=== PATIENT | male | born 1975 | race Caucasian/White ===

== ENCOUNTER 2021-04-19 17:28 | Emergency (ER) | payer MEDICAID, SELFPAY ==
[2021-04-19 17:28] VITALS: BP 134/76; PULSE 96; RESP 18; TEMP 36.8; O2SAT 98; BMI 23.2
--- NOTE | 2021-04-19 17:35 | PC.NURSE ---
PATIENT LACERATION CLEANED WITH CLEANED WITH CHLORHEXIDINE AND STERILE 4X4
--- NOTE | 2021-04-19 17:42 | HMH.EDGENADL ---
ED Disposition Clinical Impression: Dog bite of hand Qualifiers: Encounter type: initial encounter Laterality: right Qualified Code(s): S61.451A - Open bite of right hand, initial encounter Disposition: Home, Self-Care Condition on Discharge: Good Instructions: DI for Laceration Repair, DI for Dog Bite Additional Instructions: Augmentin as prescribed. Rest hand and elevate hand next 2 days. Wound check by primary care provider for urgent treatment center in 3 to 4 days. Suture removal in 10 days. Additional instructions for LACERATION: Clean the wound daily with soap and water. You may shower. Apply a thin film of antibiotic ointment such as neosporin or triple antibiotic after showering and apply a bandage. Avoid submerging the wound, no swimming. See your primary care physician or return to the Urgent Treatment Center in 10 days for suture removal. The Urgent Treatment Center is open 9AM to 9 PM, 7 days a week. Return if any signs of infection including increasing pain, pus drainage, swelling, redness, red streaks, or fever. Prescriptions: Amoxicillin/Potassium Clav [Augmentin 875-125 Tablet] 1 tab PO Q12H #10 tab Transmission Status: Received by [id number] Referrals: Provider,Referral, [Primary Care Provider] - Forms: Work/School Release - Critical Care Critical Care Time: No Attestation: On , the high probability of a clinically significant, sudden or life threatening deterioration of the following system(s) required my full and direct attention, intervention and personal management. The time I documented below is in addition to time spent performing reported procedures but includes the following listed in this critical care notation. Medical Decision Making - Joseph Inquiry Pt receiving controlled substance: No Vital Signs: 04/19/21 17:28 Temperature 98.2 F Temperature Source Oral Pulse Rate [Right] 96 H Respiratory Rate 18 Blood Pressure [Right Arm] 134/76 Blood Pressure Mean [Right Arm] 95 02 Sat by Pulse Oximetry 98 Oxygen Delivery Method Room Air - Lab Data Lab Results 04/19/21 17:33: WBC 7.3, RBC 4.32 L, Hgb 13.8 L, Hct 39.7 L, MCV 91.9, MCH 31.9 H, MCHC 34.7, RDW 13.5, Plt Count 131 L, MPV 10.7 H, Neut % (Auto) 49.1, Lymph % (Auto) 44.0, [place] % (Auto) 3.6, Eos % (Auto) 2.5, Baso % (Auto) 0.8, Neut # (Auto) 3.6, Lymph # (Auto) 3.2, [place] # (Auto) 0.3, Eos # (Auto) 0.2, Baso # (Auto) 0.1 04/19/21 17:33: Sodium 140, Potassium 3.7, Chloride 108 H, Carbon Dioxide 22, Anion Gap 13.7, BUN 18, Creatinine 0.90, Estimated Creat Clear 115, Estimated GFR 90, Est GFR ( Amer) 109, Glucose 166 H, Calcium 9.1, Total Bilirubin 0.5, AST 27, ALT 18, Alkaline Phosphatase 70, Total Protein 7.8, Albumin 4.8, Globulin 3.0, Albumin/Globulin Ratio 1.6 Result diagrams: 04/19/21 17:33 04/19/21 17:33 Orders (Tests/Meds): ED MEDICATIONS Discontinued Medications Generic Name Dose Route Start Last Admin Trade Name Dina PRN Reason Stop Dose Admin Amoxicillin/Clavulanate Potassium 1 each 04/19/21 17:52 04/19/21 18:01 Amoxicillin/Pot Clavulan 500mg Tablet PO 04/19/21 17:53 1 each ONCE ONE Administration Protocol Lidocaine HCl 20 ml 04/19/21 17:52 04/19/21 18:12 Lidocaine 2% 20ml Vial IJ 04/19/21 17:53 5 ml ONCE ONE Administration Tetanus/Reduced Diphtheria/Acell Pertussis 0.5 ml 04/19/21 17:51 04/19/21 18:07 Tet/Diphth/Pert-Adult 0.5ml Syringe IM 04/19/21 17:52 0.5 ml .ONCE ONE Administration Medical Decision Narrative: The wound is gaping and gapes further when he flexes his hand. Therefore 1 suture was placed in the wound to reapproximate the edges, however it was not closed tightly. General Adult HPI - General Chief complaint: Wound/Laceration Stated complaint: LACERATION Time Seen by Provider: 04/19/21 17:42 Mode of Arrival: Family Vehicle Limitations: No Limitations Description of Symptoms (Recalled from ER Triage Doc.
--- NOTE | 2021-04-19 17:44 | PC.NURSE ---
PATIENT REFUSED TO COMPLETE AN ANIMAL BITE FORM. PATIENT STATED WHEN OFFERED HE WAS OFFERED TO COMPLETE FORM, I WILL LEAVE HERE IF YOU MAKE ME FILL THAT OUT. PATIENT INFORMED BY TERENCE ELLSWORTH THAT HE HAS THE RIGHT TO REFUSE THE ANIMAL BITE FORM.
[2021-04-19 17:50] LABS: Basophils # 0.1 K/mm3 (0-0.2); Basophils % 0.8 % (0.1-2.0); Eosinophils # 0.2 K/mm3 (0.0-0.4); Eosinophils % 2.5 % (0.1-12.0); Hematocrit 39.7 % (42.0-52.0); Hemoglobin 13.8 g/dL (14.1-18.0); Lymphocytes # 3.2 K/mm3 (0.7-4.5); Mean Corpuscular HGB Conc 34.7 g/dL (31.8-35.4); Mean Corpuscular Hemoglobin 31.9 pg (27.0-31.2); Mean Corpuscular Volume 91.9 fl (80-94); Mean Platelet Volume 10.7 fl (7.4-10.4); Monocytes # 0.3 K/mm3 (0.1-1.0); Monocytes % 3.6 % (1.7-9.3); Neutrophils # 3.6 K/mm3 (1.8-7.8); Neutrophils % 49.1 % (37.0-80.0); Platelet Count 131 K/mm3 (142-424); Red Blood Count 4.32 M/mm3 (4.60-6.20); Red Cell Distribution Width 13.5 % (11.5-17.5); White Blood Count 7.3 K/mm3 (4.8-10.8)
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
[2021-04-19 18:00] VITALS: BP 134/81; PULSE 98; RESP 16; TEMP 36.7; O2SAT 98
[2021-04-19 18:00] LABS: Chloride 108 mmol/L (98-107); Potassium 3.7 mmoL/L (3.5-5.1); Sodium 140 mmol/L (136-145)
[2021-04-19 18:03] LABS: Alanine Aminotransferase 18 U/L (12-78); Albumin Level 4.8 g/dl (3.5-5.0); Albumin/Globulin Ratio 1.6 (1.1-1.8); Alkaline Phosphatase 70 U/L (38-126); Anion Gap 13.7 mEq/L (5-15); Aspartate Amino Transferase 27 U/L (17-59); Bilirubin,Total 0.5 mg/dl (0.2-1.3); Blood Urea Nitrogen 18 mg/dl (9-20); Calcium 9.1 mg/dl (8.4-10.2); Carbon Dioxide 22 mmol/L (22.0-30.0); Creatinine Clearance Estimated 115 mL/min (50-200); Estimated Glomerular Filt Rate 90 ml/min (>60); GFR (African American) 109 ML/MIN (>60); Glucose 166 mg/dl (74-100); Total Protein,Serum 7.8 g/dl (6.3-8.2)
--- NOTE | 2021-04-19 18:16 | PC.NURSE ---
TDAP CONSENT SIGNED AND IN PATIENT CHART
--- NOTE | 2021-04-19 18:23 | PC.NURSE ---
APPLIED XERFORM DRESSING TO PATIENT LACERATION PER MD REQUEST
== END 2021-04-19 18:35 | disposition home or self-care (01) ==
PROVIDERS: Emergency Provider Emergency Medicine
DX: S61.451A Open bite of right hand, initial encounter (principal); W54.0XXA Bitten by dog, initial encounter; Y92.019 Unspecified place in single-family (private) house as the place of occurrence of the external cause; Z23 Encounter for immunization
CPT/HCPCS: 12002; 73130; 80053; 85025; 90715; 99282

== ENCOUNTER 2022-05-02 19:03 | Emergency (ER) | payer OTHER, SELFPAY ==
[2022-05-02 19:07] VITALS: BP 153/85; PULSE 82; RESP 16; TEMP 36.6; O2SAT 98; BMI 22.4
[2022-05-02 20:07] VITALS: BP 123/67; PULSE 68; TEMP 36.1
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
[2022-05-02 21:01] VITALS: BP 123/72; PULSE 55; TEMP 37.7
[2022-05-02 21:33] VITALS: BP 120/68; PULSE 57; O2SAT 99
[2022-05-02 22:18] VITALS: BP 116/72; PULSE 66; RESP 16; TEMP 36.6; O2SAT 100
== END 2022-05-02 22:25 | disposition home or self-care (01) ==
PROVIDERS: Emergency Provider Emergency Medicine
DX: M54.50 Low back pain, unspecified (principal); M54.2 Cervicalgia; M25.552 Pain in left hip; M25.551 Pain in right hip; R51.9 Headache, unspecified; J44.9 Chronic obstructive pulmonary disease, unspecified
CPT/HCPCS: 70450; 72125; 72128; 72131; 96372; 99285

== ENCOUNTER → 2023-03-31 08:26 | Outpatient (POV) | payer MEDICAID, SELFPAY ==
[2023-03-31 08:29] VITALS: BP 137/74; PULSE 73; RESP 20; O2SAT 98; BMI 22.4
--- NOTE | 2023-03-31 08:45 | EXP.PAIN.OV ---
HPI Data of Consult Patient: new to practice Consult date: 03/31/23 Requesting Physician: Rhonda Serrano APRN Primary Care Provider: Blanca Purdy APRN Consult Narrative Reason for consult: Neck pain, low back pain History of present illness: Mr. Merlos is a 48 year old male who presents today as a new patient. He is a referral from Blanca Purdy's office. Today he rates his pain a 5 out of 10. Patient states his pain is all in his upper back/neck between his shoulder blades and low back with radiating symptoms into his bilateral lower extremities with the right side being the worst side. Patient describes this as a achy, stabbing sensation in his low back to his legs. He does state this pain is worse with increased activity however it is intermittent and sometimes randomly will have his legs give out. He does state that the pain between his shoulder blades often can affect his breathing. He feels like he has a knot formed he frequently uses pillows for positioning to relieve some of this pressure. 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 Patient denies any previous surgery. Patient has tried [id number] ibuprofen along with heat and ice and topicals with no additional improvement. He states in the past he has had 1 injection years ago and he does not recall it providing significant relief. Patient has had physical therapy in the past that he stated did provide some improvement but also worsened some other pain areas. Patient is currently on Suboxone therapy from an outside provider. He also takes Motrin on a daily basis. His Joseph is [phone]. Its been reviewed and appropriate. CC: Rhonda Serrano APRN [facility] Disclaimer: The information contained in this section may have been updated after the patient was seen, as this information can be updated by other users. Medical History (Updated 03/31/23 @ 08:51 by Rhonda Serrano APRN) COPD (chronic obstructive pulmonary disease) Family History (Updated 03/31/23 @ 08:30 by Ana Dent RN) Other COPD (chronic obstructive pulmonary disease) Cancer Coronary artery disease Social History (Updated 03/31/23 @ 08:47 by Ana Dent RN) Smoking Status: Current every day smoker alcohol intake: never current occupational status: employed Travel in the last 8 weeks: None Review of Systems Review of Systems Review of systems:: pertinent systems reviewed and negative unless documented below Review of systems (narrative): Review of Systems: General: No recent weight changes, no fever, no sleep disturbances Respiratory: No cough, no shortness of air, no recurring pulmonary infections Cardiovascular/peripheral vascular: No chest pain, no palpitations, no edema, no shortness of breath Gastrointestinal: No new onset incontinence, normal bowel movements reported Genitourinary: No new onset incontinence Musculoskeletal: Neck pain, low back pain Psychiatric: [Normal mood/affect] Neurological: [Denies weakness in extremities], [denies balance issues] Meds Home Medications and Allergies Home Medications Medication Instructions Recorded Confirmed Type albuterol sulfate 90 mcg/actuation 1 puff inhalation DIRECTED 03/31/23 03/31/23 History aerosol inhaler (Ventolin HFA) Breathing problems buprenorphine 8 mg-naloxone 2 mg 1 tab sublingual DIRECTED OTHER 03/31/23 03/31/23 History sublingual tablet ibuprofen 800 mg tablet 800 mg PO DIRECTED Pain 03/31/23 03/31/23 History umeclidinium 62.5 mcg-vilanterol 1 inh inhalation DIRECTED 03/31/23 03/31/23 History 25 mcg/actuation powdr for Breathing problems inhalation (Anoro Ellipta) varenicline 0.5 mg (11)-1 mg (42) 1 tab PO DIRECTED SMOKING 03/31/23 03/31/23 History tablets in a dose pack CESSATION New Prescriptions to Start Prescriptions: Allergies Allergy/AdvReac Type Severity Reaction Status Date / Time No Kno
== END ==
PROVIDERS: PCP Nurse Practitioner Family; Visit Provider Nurse Practitioner Family
DX: M51.16 Intervertebral disc disorders with radiculopathy, lumbar region (principal); M50.10 Cervical disc disorder with radiculopathy, unspecified cervical region; M48.061 Spinal stenosis, lumbar region without neurogenic claudication
CPT/HCPCS: 99202; G0463

== ENCOUNTER 2023-04-08 10:44 | Day surgery (SDC) | payer MEDICAID, SELFPAY ==
[2023-04-08 10:57] VITALS: BP 145/71; PULSE 70; RESP 18; TEMP 36.9; O2SAT 98; BMI 22.4
[2023-04-08 10:59] VITALS: BP 151/76; PULSE 85; RESP 18; O2SAT 98
[2023-04-08 11:01] VITALS: BP 151/76; PULSE 85; RESP 18; O2SAT 98
--- NOTE | 2023-04-08 11:03 | EXP.PAIN.PRO ---
Procedure Date: 04/08/23 Time: 10:50 Anesthesiologist:: Crispin Rizvi CRNA Complications:: None Pre-procedure Diagnosis:: Degenerative disc lumbar spine multilevels. Lumbar radiculopathy Post-procedure Diagnosis:: Same. Indications for Procedure:: Very pleasant 48-year-old male comes our clinic today for lumbar epidural steroid injection at the L4-5 level. Patient complains of low back pain as well as bilateral hip and leg radicular symptoms at times. He rates his pain 6/10. Procedure Details:: Procedure: Lumbar epidural steroid injection under fluoroscopy Informed consent was obtained and the risks and benefits of the procedure were explained to the patient. The patient was taken to the procedure room and noninvasive monitors placed, including noninvasive blood pressure cuff and pulse oximeter. The back was viewed using C-arm Fluoroscopy and prepped using Chloraprep as a cleansing solution and the L4-L5 interspace was palpated. Skin and subcutaneous tissues were anesthetized using lidocaine 1.5% and a 25-gauge needle. After this, an 18-gauge Touhy epidural needle was placed into the L4-L5 interspace and advanced using fluoroscopic guidance and loss of resistance to air until the epidural space was encountered. After confirmation of needle placement in the epidural space, with dye, a solution containing normal saline, 3 mL and Depo-Medrol 80 mg were incrementally injected into the lumbar epidural space. The patient tolerated the procedure well with no complications. The patient was observed in the Pain Clinic and then discharged home neurologically intact. Plan and Disposition:: Patient was discharged without incident.
[2023-04-08 11:05] VITALS: BP 117/78; PULSE 67; RESP 18; O2SAT 98
== END 2023-04-08 11:05 | disposition home or self-care (01) ==
PROVIDERS: PCP Nurse Practitioner Family; Visit Provider Nurse Anesthetist, Certified Registered
DX: M51.16 Intervertebral disc disorders with radiculopathy, lumbar region (principal)
CPT/HCPCS: 62323; J1040

== ENCOUNTER → 2023-05-15 10:16 | Outpatient (POV) | payer MEDICAID, SELFPAY ==
[2023-05-15 10:30] VITALS: BP 121/76; PULSE 75; RESP 18; O2SAT 98; BMI 22.4
--- NOTE | 2023-05-15 10:49 | EXP.PAIN.SOA ---
[facility] Pain Management SOAP Note Subjective:: Patient is a pleasant 48-year-old male who presents today for follow-up of lumbar epidural steroid injection of L4-L5 on 04/08/2023. We are currently treating the patient for degenerative disc disease of lumbar spine multilevels with lumbar radiculopathy symptoms, neck pain with cervical radiculopathy symptoms. Today he rates his pain a 3 out of 10. Patient states that he had at least 80 to 90% improvement following his lumbar epidural steroid injection and states it is still helping some however he has started to notice a little bit more pain in his low back. Patient states initially following this injection he has been able to increase his activity with decreased pain symptoms. Today he does state his pain is more related to his neck. He did state that following the initial lumbar injection he began to notice that he was experiencing worsening pain in his neck than what he realized. Patient does describe this as an aching, throbbing sensation that is worse with increased activity. He does state the pain interferes with his ability to perform activities of daily living such as cooking and cleaning. Patient has tried [id number]-bldihzs medications such as Tylenol and ibuprofen along with heat and ice and topicals with no additional relief. Patient is on Suboxone therapy from an outside provider. His Joseph is [phone]. Its been reviewed and appropriate. Review of Systems: General: No recent weight changes, no fever, no sleep disturbances Respiratory: No cough, no shortness of air, no recurring pulmonary infections Cardiovascular/peripheral vascular: No chest pain, no palpitations, no edema, no shortness of breath Gastrointestinal: No new onset incontinence, normal bowel movements reported Genitourinary: No new onset incontinence Musculoskeletal: Neck pain, arm pain Psychiatric: [Normal mood/affect] Neurological: [Denies weakness in extremities], [denies balance issues] Objective:: Physical Exam: General: Alert and oriented x3, no acute distress, pleasant and cooperative Lungs: Respirations even and unlabored, symmetrical chest expansion Eyes: PERRL Musculoskeletal: Flexion and extension of cervical [spine] somewhat guarded secondary to pain, [antalgic gait noted] Neurological: Speech clear, no gross sensory deficit Assessment:: Degenerative disc disease of cervical and lumbar spine with cervical and lumbar radiculopathy symptoms Plan:: Patient is experiencing worsening pain in his neck with limited range of motion and radiating symptoms into his arms. Patient's previous CT scan of his cervical spine did show multilevel degenerative disc disease with osteophytes, endplate sclerosis and neuroforaminal narrowing. I have discussed with patient that he may benefit from cervical epidural. Risk and benefits were discussed with the patient and he would like to proceed forward with this plan of care. Patient is not on any blood thinners. We will schedule him for a EDEN C6-C7. Patient has been instructed to contact the clinic with any concerns before the next appointment. Dr. Brink has reviewed this note and agrees with this plan of care. This note was dictated using voice recognition software and make contain errors or omissions. [facility] Disclaimer: The information contained in this section may have been updated after the patient was seen, as this information can be updated by other users. Medical History COPD (chronic obstructive pulmonary disease) Family History Other COPD (chronic obstructive pulmonary disease) Cancer Coronary artery disease Social History Smoking Status: Current every day smoker alcohol intake: never current occupational status: employed Travel in the last 8 weeks: None
== END ==
PROVIDERS: Visit Provider Nurse Practitioner Family
DX: M50.10 Cervical disc disorder with radiculopathy, unspecified cervical region (principal); M51.16 Intervertebral disc disorders with radiculopathy, lumbar region
CPT/HCPCS: 99212; G0463

== ENCOUNTER → 2023-06-09 14:14 | Outpatient (POV) | payer MEDICAID, SELFPAY ==
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
[2023-06-09 14:52] VITALS: BP 138/85; PULSE 95; RESP 18; O2SAT 97; BMI 22.5
== END | disposition home or self-care (01) ==
PROVIDERS: PCP Nurse Practitioner Family; Visit Provider Nurse Practitioner Family
DX: M50.10 Cervical disc disorder with radiculopathy, unspecified cervical region (principal); M51.16 Intervertebral disc disorders with radiculopathy, lumbar region
CPT/HCPCS: 99212; G0463